=== PATIENT | female | born 1955 | race Caucasian/White ===

== ENCOUNTER 2017-06-06 18:19 | Emergency (ER) | payer BC ==
[~2017-06-06] VITALS: Ht 165.1 cm; Wt 96.2 kg
[~2017-06-06 18:19] MED LIST: BIRTH CONTROL; HCT25T PO; LEVOTHYROXIN; OMEP-10 PO; PARO10TA21 PO
--- NOTE | 2017-06-06 18:44 | ED Lower Extremity ---
General Chief Complaint: General Problems/Pain Stated Complaint: LEFT LEG PAIN Source: patient Exam Limitations: no limitations History of Present Illness Date Seen by Provider: Jun 06, 2017 Time Seen by Provider: 18:42 Initial Comments To ER with left posterior knee and calf pain for the past 3 days without known injury. Pain is circumferential around the left knee at times and worse with certain movements. No swelling she's noticed. No fevers no redness. No history DVT. She did have a popping sensation in her knee at one point earlier today and now she has pain to the medial anterior aspect of the knee. Onset: other Severity: moderate Pain/Injury Location: left leg Method of Injury: unknown Modifying Factors: Worse With Movement Allergies and Home Medications Allergies Coded Allergies: No Known Drug Allergies (Unverified , 07/27/10) Home Medications Hydrocodone/Acetaminophen 1 Each Tablet, 1 EACH PO Q4H PRN for PAIN-SEVERE Prescribed by: CHELI GIBSON on 06/06/17 193 Patient Home Medication List Home Medication List Reviewed: Yes Constitutional: see HPI EENTM: see HPI Respiratory: no symptoms reported Cardiovascular: no symptoms reported Genitourinary: no symptoms reported Musculoskeletal: see HPI Skin: no symptoms reported Psychiatric/Neurological: No Symptoms Reported Past Monhfym-Iytxbw-Gqdtwv Hx Patient Social History Recent Foreign Travel: No Contact w/Someone Who Travel: No Physical Exam Vital Signs Vital Signs - First Documented 06/06/17 18:30 Temp 98.2 Pulse 74 Resp 16 B/P (MAP) 169/78 (108) Pulse Ox 100 O2 Delivery Room Air Capillary Refill : General Appearance: WD/WN, no apparent distress HEENT: PERRL/EOMI, normal ENT inspection Neck: non-tender, full range of motion Respiratory: no respiratory distress, no accessory muscle use Gastrointestinal: normal bowel sounds, non tender Hips: bilateral hip non-tender, bilateral hip normal inspection, bilateral hip normal range of motion Legs: left leg soft tissue tenderness, left leg swelling (there is soft tissue tenderness to palpation of the calf but no obvious swelling or erythema) Knees: bilateral knee non-tender, bilateral knee normal inspection, bilateral knee normal range of motion Ankles: bilateral ankle non-tender, bilateral ankle normal inspection, bilateral ankle normal range of motion Feet: bilateral foot non-tender, bilateral foot normal inspection, bilateral foot normal range of motion Neurologic/Psychiatric: alert, normal mood/affect, oriented x 3 Skin: normal color, warm/dry Progress/Results/Core Measures Results/Orders My Orders Orders - CHELI GIBSON APRN Knee, Left, 3 Views (06/06/17 18:41) Tibia/Fibula, Left, 2 Views (06/06/17 18:41) Us Venous Lower Ext Lt (06/06/17 18:41) Rx-Hydrocodone/Apap 5-325 Mg (Rx-Vicodin (06/06/17 20:00) Vital Signs/I&O Vital Sign - Last 12Hours 06/06/17 06/06/17 18:30 20:04 Temp 98.2 Pulse 74 71 Resp 16 16 B/P (MAP) 169/78 (108) 188/95 Pulse Ox 100 98 O2 Delivery Room Air Departure Impression Impression: Primary Impression: Knee pain, acute Disposition: 01 HOME, SELF-CARE Condition: Stable Departure-Patient Inst. Decision time for Depature: 19:38 Referrals: JABIER GRANT MD (PCP) Primary Care Physician Patient Instructions: Knee Pain Add. Discharge Instructions: 1. ER for any concerns 2. Follow-up with your doctor next week. Pain persists discuss MRI of the knee. 3. All discharge instructions reviewed with patient and/or family. Voiced understanding. Scripts Hydrocodone/Acetaminophen ([place] 5-325 Tablet) 1 Each Tablet 1 EACH PO Q4H Y for PAIN-SEVERE, #10 TAB Prov: CHELI GIBSON APRN 06/06/17 CHELI GIBSON APRN Jun 06, 2017 18:44
[2017-06-06] MEDS ORDERED: BISO1TAB6 (19:04)
[2017-06-06] MEDS ORDERED: LOVA10TA (19:04)
[2017-06-06] MEDS ORDERED: FURO20TA4 (19:04)
[2017-06-06] MEDS ORDERED: POTA10TA10 (19:04)
[2017-06-06] MEDS ORDERED: FLUO20CA25 (19:04)
--- NOTE | 2017-06-06 19:22 | Diagnostic Imaging Report ---
INDICATION: Complaining of pain behind the left knee, felt a pop while walking the dog 3 days ago. COMPARISON STUDY: Left tibia and fibula from today. FINDINGS: Three views of the left knee demonstrate mild degenerative changes of the patellofemoral joint. No fracture, dislocation or joint effusion is present. IMPRESSION: There are mild degenerative changes of the left patellofemoral joint. Dictated by: Dictated on workstation # [id number]
--- NOTE | 2017-06-06 19:26 | Diagnostic Imaging Report ---
INDICATION: Complaining of pain behind the left knee, felt a pop while walking a dog 3 days ago. COMPARISON STUDY: Left knee films FINDINGS: Frontal and lateral views of the left tibia and fibula demonstrate normal ossification. No fracture, dislocation or foreign body is present. IMPRESSION: Normal left tibia and fibula. Dictated by: Dictated on workstation # [id number]
[2017-06-06] MEDS ORDERED: HYDR-757 PO (19:39)
--- NOTE | 2017-06-06 19:56 | Diagnostic Imaging Report ---
PROCEDURE: US left lower extremity venous. TECHNIQUE: Multiple real-time grayscale images were obtained over the left lower extremity in various projections. Additional duplex Doppler and color Doppler images were also obtained. INDICATION: Left lower extremity pain for 3 days. COMPARISON STUDIES: None FINDINGS: Examination demonstrates no evidence of DVT. No fluid collections are present. IMPRESSION: Negative left lower extremity venous Doppler. Dictated by: Dictated on workstation # [id number]
[2017-06-06] MEDS ORDERED: RX-HYDROCODONE/APAP 5/325 MG #4 TAB PK PO PRN (20:00)
[2017-06-06 20:04] VITALS: BP 188/95
== END 2017-06-06 20:06 | disposition home or self-care (01) ==
LOC: EDUNIT# 18:19 → ER 18:21
DX: M25.562 Pain in left knee (principal)
CPT/HCPCS: 73562; 73590

== ENCOUNTER → 2020-10-14 | Outpatient (CLI) | payer BC ==
[~2020-10-14] VITALS: Ht 165.1 cm; Wt 88.6 kg
[~2020-10-14] MED LIST changes: +BISO-3; +FLUO20CA46; +FURO20TA4; +GADOBUTROL 7.5 MMOL/7.5 ML (GADAVIST) VIAL IV ONE; +HYDR-4226 PO; +IOHEXOL 300 MG/ML 50 ML (OMNIPAQUE 300) VIAL IV ONE; +LOVA10TA; +POTA10TA10
--- NOTE | 2020-10-14 12:00 | Diagnostic Imaging Report ---
INDICATION: Painful limitations and range of motion. Biopsy discussed with the patient and informed consent obtained. Utilizing aseptic and following local anesthesia with 1% lidocaine a 20-gauge needle was advanced the glenohumeral joint under fluoroscopic observation, a solution containing saline and iodinated contrast and gadolinium was then instilled through the needle which was abutting the superomedial humeral head. While there was a intra-articular extension of contrast media there was a vigorous extravasation into the subacromial and subdeltoid bursa with injection, presumed to reflect underlying rotator cuff tear. After contrast was instilled needle was removed, hemostasis spontaneous, there was no apparent complication. The patient proceeds to MR suite for further evaluation. 31 seconds of fluoroscopy time utilized. IMPRESSION: Successful fluoroscopic-assisted intra-articular administration of contrast media in the left glenohumeral joint for followup MR. Vigorous contrast extravasation into the subacromial subdeltoid bursa almost immediately with injection was observed. Dictated by: Dictated on workstation # [id number]
--- NOTE | 2020-10-14 12:08 | Diagnostic Imaging Report ---
EXAMINATION: Magnetic resonance imaging of the left shoulder with intra-articular contrast. DATE: October 14, 2020. COMPARISON: Left shoulder arthrogram October 14, 2020. HISTORY: 65-year-old female, left shoulder pain after lifting. TECHNIQUE: Magnetic Resonance Imaging sequences were performed of the shoulder following the intra-articular administration of contrast. FINDINGS: There are motion limitations of the exam. ROTATOR CUFF, LIGAMENTS, TENDONS, AND MUSCLES: There is a full thickness full width tear of the supraspinatus tendon with tendon retraction that is medial to the mid superior humeral head measuring 2.9 cm. Infraspinatus and teres minor tendons are intact. There is a near full-thickness tear of the subscapularis tendon. There is low-level edema in portions of the supraspinatus muscle most consistent with a low-grade muscle strain. There is no pronounced fatty muscle atrophy. LONG HEAD OF BICEPS: The intra-articular segment of the long head of the biceps tendon is not seen and the tendon is also poorly identified within the bicipital groove although there is substantially limited evaluation at this level. The proximal long head of biceps tendon is most likely torn from its superior labral attachment . GLENOHUMERAL JOINT: The humeral head is mildly superiorly subluxed. There is limited labral evaluation given the degree of motion limitations of the study. There is a noted discretely identified labral tear. There is no identified paralabral cyst. The articular cartilage is grossly intact. There is no identified intra-articular body or prominent synovitis. ACROMIOCLAVICULAR JOINT: The acromioclavicular joint is normally aligned. The coracoclavicular and coracoacromial ligaments are intact. There are mild acromioclavicular degenerative changes without undersurface osteophyte. There is a small acromial keel spur. BONE: There is no os acromiale. There is no Hill-Sachs deformity. There is no identified acute fracture. There is marrow edema in the superior humeral head centered in the region of the supraspinatus tendon insertion although fairly broad in distribution. This may reflect a bone contusion. There are no pathognomonic signal changes of osteonecrosis. BURSAE AND SOFT TISSUES: There is contrast extension into the subacromial subdeltoid bursa. IMPRESSION: 1. Full thickness full width tear of the supraspinatus tendon with tendon retraction of approximately 2.9 cm just medial to the mid aspect of the superior humeral head. Near full-thickness tear of the subscapularis tendon. No pronounced fatty muscle atrophy. Low level edema in portions of the supraspinatus muscle most likely reflecting a low-grade muscle strain. 2. Tear of the proximal long head of biceps tendon with poorly identified position of the torn retracted tendon. 3. Mild acromioclavicular degenerative changes without undersurface osteophyte. Small acromial keel spur. 4. Edema in the superior humeral head fairly broad in appearance although centered near the region of the supraspinatus tendon insertion most likely reflecting a bone contusion. No identified acute fracture. 5. No definite discrete labral tear and additional glenohumeral joint assessment is largely unremarkable. Dictated by: Dictated on workstation # [id number]
== END ==
LOC: RAD 10:13
PROVIDERS: ATTEND Family Medicine
DX: S46.112A Strain of muscle, fascia and tendon of long head of biceps, left arm, initial encounter (principal); M75.122 Complete rotator cuff tear or rupture of left shoulder, not specified as traumatic; M19.012 Primary osteoarthritis, left shoulder; X50.0XXA Overexertion from strenuous movement or load, initial encounter
CPT/HCPCS: 23350; 73040; 73222

== ENCOUNTER 2020-10-17 20:14 | Emergency (ER) | payer BC ==
[~2020-10-17] VITALS: Ht 165 cm; Wt 100.0 kg
[~2020-10-17 20:14] MED LIST changes: -GADOBUTROL 7.5 MMOL/7.5 ML (GADAVIST) VIAL IV ONE; -IOHEXOL 300 MG/ML 50 ML (OMNIPAQUE 300) VIAL IV ONE
--- NOTE | 2020-10-17 21:03 | ED Upper Extremity ---
General Chief Complaint: Upper Extremity Stated Complaint: L ARM PAIN Source: patient Exam Limitations: no limitations History of Present Illness Date Seen by Provider: Oct 17, 2020 Time Seen by Provider: 21:01 Initial Comments To ER with left shoulder pain. She had an MRI done a few days ago showing a full-thickness supraspinatus tear as well as a few other less significant tears. [facility] has yet to refer her to orthopedics she says. Onset: just prior to arrival Severity: moderate Pain/Injury Location: left shoulder Method of Injury: fell Modifying Factors: Worse With Movement Allergies and Home Medications Allergies Coded Allergies: No Known Drug Allergies (Unverified , 07/27/10) Home Medications Hydrocodone/Acetaminophen 1 Each Tablet, 1 EACH PO Q4H PRN for PAIN-SEVERE Prescribed by: CHELI GIBSON on 06/06/171938 Hydrocodone/Acetaminophen 1 Each Tablet, 1 TAB PO Q4H PRN for PAIN-MODERATE (5- 7) Prescribed by: CHELI GIBSON on 10/17/202104 Patient Home Medication List Home Medication List Reviewed: Yes Review of Systems Constitutional: see HPI EENTM: see HPI Respiratory: no symptoms reported Cardiovascular: no symptoms reported Genitourinary: no symptoms reported Musculoskeletal: see HPI Skin: no symptoms reported Psychiatric/Neurological: No Symptoms Reported Past Sdwqezs-Xuornr-Rnpsyw Hx Seasonal Allergies Seasonal Allergies: No Past Medical History Surgeries: Yes (NUMEROUS BURN SURGERIES) Respiratory: No Cardiac: Yes Hypertension Neurological: No Musculoskeletal: Yes Arthritis Endocrine: Yes Hypothyroidsim Blood Disorders: No Physical Exam Vital Signs Capillary Refill : Height, Weight, BMI Height: 5'5.00" Weight: 212lbs. oz. 96.498580ym; 32.50 BMI Method:Stated General Appearance: WD/WN, no apparent distress Respiratory: no respiratory distress, no accessory muscle use Shoulder: normal inspection, limited ROM (Arm is in a sling, pain with any range of motion), pain Elbow/Forearm: normal inspection, non-tender, Left Hand: normal inspection, non-tender Neurologic/Psychiatric: alert, normal mood/affect, oriented x 3 Skin: normal color, warm/dry Departure Communication (Admissions) [facility], [place] NAME: CIRILO RICARDO MED REC#: [id number] PT STATUS: REG CLI : 1955 PHYSICIAN: CARMELA YU DO ADMIT DATE: 10/14/20/RAD Signed Date of Exam:10/14/20 MRI LT UPPER EXT JOINT WITH EXAMINATION: Magnetic resonance imaging of the left shoulder with intra-articular contrast. DATE: October 14, 2020. COMPARISON: Left shoulder arthrogram October 14, 2020. HISTORY: 65-year-old female, left shoulder pain after lifting. TECHNIQUE: Magnetic Resonance Imaging sequences were performed of the shoulder following the intra-articular administration of contrast. FINDINGS: There are motion limitations of the exam. ROTATOR CUFF, LIGAMENTS, TENDONS, AND MUSCLES: There is a full thickness full width tear of the supraspinatus tendon with tendon retraction that is medial to the mid superior humeral head measuring 2.9 cm. Infraspinatus and teres minor tendons are intact. There is a near full-thickness tear of the subscapularis tendon. There is low-level edema in portions of the supraspinatus muscle most consistent with a low-grade muscle strain. There is no pronounced fatty muscle atrophy. LONG HEAD OF BICEPS: The intra-articular segment of the long head of the biceps tendon is not seen and the tendon is also poorly identified within the bicipital groove although there is substantially limited evaluation at this level. The proximal long head of biceps tendon is most likely torn from its superior labral attachment . GLENOHUMERAL JOINT: The humeral head is mildly superiorly subluxed. There is limited labral evaluation given the degree of motion limitations of the study. There is a noted discretely identified labral tear. There is no identified paralabral cyst. The articular cartilage is grossly intact. There is no identified intra-articular body or prominent synovitis. ACROMIOCLAVICULAR JOINT: The acromioclavicular joint is normally aligned. The coracoclavicular and coracoacromial ligaments are intact. There are mild acromioclavicular degenerative changes without undersurface osteophyte. There is a small acromial keel spur. BONE: There is no os acromiale. There is no Hill-Sachs deformity. There is no identified acute fracture. There is marrow edema in the superior humeral head centered in the region of the supraspinatus tendon insertion although fairly broad in distribution. This may reflect a bone contusion. There are no pathognomonic signal changes of osteonecrosis. BURSAE AND SOFT TISSUES: There is contrast extension into the subacromial subdeltoid bursa. IMPRESSION: 1. Full thickness full width tear of the supraspinatus tendon with tendon retraction of approximately 2.9 cm just medial to the mid aspect of the superior humeral head. Near full-thickness tear of the subscapularis tendon. No pronounced fatty muscle atrophy. Low level edema in portions of the supraspinatus muscle most likely reflecting a low-grade muscle strain. 2. Tear of the proximal long head of biceps tendon with poorly identified position of the torn retracted tendon. 3. Mild acromioclavicular degenerative changes without undersurface osteophyte. Small acromial keel spur. 4. Edema in the superior humeral head fairly broad in appearance although centered near the region of the supraspinatus tendon insertion most likely reflecting a bone contusion. No identified acute fracture. 5. No definite discrete labral tear and additional glenohumeral joint assessment is largely unremarkable. Dictated by: Dictated on workstation # [id number] Dict: 10/14/20 1157 Trans: 10/14/20 1218 CV [id number] Interpreted by: RAINER ESCOBAR MD Electronically signed by: RAINER ESCOBAR MD 10/14/20 1218 Impression Primary Impression: Rotator cuff tear Disposition: 01 HOME, SELF-CARE Condition: Stable Departure-Patient Inst. Decision time for Depature: 21:02 Referrals: JABIER GRANT MD (PCP) Primary Care Physician MONI MANCIA MD, JOHN T MD STRINGER, ROBERT F DO ZAFUTA, MICHAEL P MD Patient Instructions: Rotator Cuff Injury Add. Discharge Instructions: Call orthopedic surgeon of your choosing on Monday. Continue with the sling. Add ibuprofen to your pain regimen. All discharge instructions reviewed with patient and/or family. Voiced understanding. Scripts Hydrocodone/Acetaminophen (Hydrocodone-Acetamin 5-325 mg) 1 Each Tablet 1 TAB PO Q4H PRN for PAIN-MODERATE (5-7), #20 TAB Prov: CHELI GIBSON APRN 10/17/20 Copy Copies To 1: NUHA ALARCON PETER J APRN Oct 17, 2020 21:03
[2020-10-17] MEDS ORDERED: ACHD5005 PO (21:04)
[2020-10-17] MEDS ORDERED: KETOROLAC 60 MG/2 ML VIAL IM ONE (21:15)
[2020-10-17 21:51] VITALS: BP 125/81
== END 2020-10-17 21:52 | disposition home or self-care (01) ==
LOC: EDUNIT# 20:14 → ER 20:16
DX: S46.012A Strain of muscle(s) and tendon(s) of the rotator cuff of left shoulder, initial encounter (principal); I10 Essential (primary) hypertension; W19.XXXA Unspecified fall, initial encounter
CPT/HCPCS: 99284

== ENCOUNTER → 2021-01-22 | Outpatient (CLI) | payer BC ==
[~2021-01-22] MED LIST changes: +ACHD5005 PO
== END ==
LOC: LABNPT 06:27
PROVIDERS: ATTEND Orthopaedic Surgery
DX: Z01.812 Encounter for preprocedural laboratory examination (principal); Z20.822 Contact with and (suspected) exposure to COVID-19
CPT/HCPCS: 87635